=== PATIENT | female | born 1960 | race Caucasian/White ===

== ENCOUNTER → 2024-07-12 10:27 | Outpatient (REF) | payer OTHER, SELFPAY | LOC: HWRAD 10:27 | PROVIDERS: ATTENDING PHYSICIAN Obstetrics & Gynecology Obstetrics; FAMILY PHYSICIAN Internal Medicine | DX: R10.2 Pelvic and perineal pain (principal) | CPT/HCPCS: 76830; 76856 ==

== ENCOUNTER → 2024-07-15 13:28 | Outpatient (REF) | payer OTHER, SELFPAY | LOC: RAD 13:28 | PROVIDERS: ATTENDING PHYSICIAN Internal Medicine | DX: M81.0 Age-related osteoporosis without current pathological fracture (principal) | CPT/HCPCS: 77080 ==

== ENCOUNTER 2024-12-04 08:38 | Emergency (ER) | payer OTHER, SELFPAY ==
[2024-12-04 08:59] VITALS: BP 102/66
--- NOTE | 2024-12-04 09:08 | ED.GENMED ---
Addendum entered and electronically signed by Eri Mayer PA-C 12/07/24 14:44:
hickman sensitive; no treatment change required
Addendum entered and electronically signed by Ciro Ledesma PA-C 12/06/24 06:12:
Urine culture with greater than 100,000 colony-forming units of E. coli. This is preliminary. On Keflex. Sensitivities pending
Original Note:
History of Present Illness
General
Chief Complaint: Urinary Symptoms
Source: patient
Exam Limitations: none
Time Seen by Provider: 12/04/24 09:06
Nursing documentation reviewed up to this point in time: agreed with
History of Present Illness
History of Present Illness:
TIME OF INITIAL EVALUATION
-9:15AM
CHIEF COMPLAINT(S)
Painful urination and hematuria.
HISTORY OF PRESENT ILLNESS
The patient is a 64-year-old female with a past medical history of Factor V Leiden and ulcerative colitis leading to a J-pouch, presenting with extreme pain during urination and visible blood in the urine. The symptoms began this morning.
Initially, the patient experienced sudden pain in the pelvic area upon getting up, which worsened during urination and radiated to the left side of the back. No fever, nausea, vomiting, or significant abdominal pain was reported. She has a history
of kidney stones many years ago although feels that presented differently. She does have a history of UTIs.
Patient had a left knee replacement 8 weeks ago.
ADDITIONAL HISTORY OBTAINED FROM SOURCES OTHER THAN THE PATIENT
The patient reports that her urine appears dark with a significant amount of blood present each time she voids.
PHYSICAL EXAM
- General: Well appearing in no distress
- HEENT: Moist oral mucosa
- Cardiovascular: No murmurs, normal heart rate, regular rhythm, No chest wall tenderness
- Pulmonary: No respiratory distress, breath sounds are clear and equal
- Abdomen: Abdomen soft. Mild tenderness in suprapubic region. No rebound tenderness or guarding. No CVA tenderness.
- Neurologic: Excellent strength all extremities, no coordination deficits
- Psychiatric: Appropriate mental status, normal insight and judgement
- Extremities: Nontender, no edema, moves all extremities equally
- Skin: No rash, no lesions
CHRONIC MEDICAL CONDITIONS SIGNIFICANTLY AFFECTING CARE
Chronic conditions affecting care: Factor V Leiden, J-pouch due to ulcerative colitis.
PLAN
Initiate laboratory tests and send a urine sample for analysis to rule out infection and assess for stones. Start IV fluids. Administer pain management -plan to avoid NSAIDs with digestive concerns.
DIFFERENTIAL DIAGNOSIS
The Differential Diagnosis includes, in no particular order and is not limited to:
1. Urinary tract infection
2. Nephrolithiasis (kidney stones)
3. Pyelonephritis
4. Interstitial cystitis
5. Acute cystitis
6. Urethral stricture
7. Bladder tumor
8. Hemorrhagic cystitis
9. Drug-induced hematuria
10. Coagulopathy due to Factor V Leiden
REVIEW OF OLD RECORDS
- Pelvic ultrasound 07/12/24 -unremarkable exam
RADIOLOGY
- Noncontrast CT abdomen/pelvis - No evidence of obstructing uropathy or perinephric stranding
LABS
- CBC and CMP without clinically significant abnormalities. No leukocytosis or renal insufficiency noted.
- UA shows evidence of infection given nitrate positive, 3+ leukocyte esterase, >100 RBCs, and some WBCs
MEDICAL DECISION MAKING
Chronic conditions affecting care: Factor V Leiden, J-pouch due to ulcerative colitis. Differential diagnoses considered include urinary tract infection, nephrolithiasis, interstitial cystitis, acute cystitis, urethral stricture, bladder tumor,
hemorrhagic cystitis, and coagulopathy due to Factor V Leiden.
INDEPENDENT REVIEW OF LABS AND INTERPRETATION OF TESTS
My independent review of the urine analysis indicates the presence of red blood cells and nitrite positivity, suggesting a urinary tract infection. There is no evidence of kidney stones.
PLAN
Overall - suspect acute UTI without evidence of obstructive process or ascending infection. Patient well and nontoxic appearing. Discussed lab/imagine findings with patient at bedside. Initiate treatment with an oral antibiotic, based on patient
history and allergies, and send the urine for culture. Provide pain management with acetaminophen, continue observation for any worsening symptoms. Feel stable for discharge home with outpatient management. Instruct the patient to follow up with
the primary care provider and to have a repeat urinalysis in a month to ensure resolution of hematuria.
MEDICATION RECONCILIATION
Prescribed cephalexin for the urinary tract infection. Recommended continuation of oxycodone for knee pain with the addition of acetaminophen for enhanced pain relief. Will send rx for Pyridium for additional analgesic.
FOLLOW-UP INSTRUCTIONS
Patient instructed to follow up with a primary care provider and to have a repeat urinalysis in a month. Advised to return if symptoms worsen or systemic signs of infection develop, such as fever, severe back pain, or vomiting.
PATHOLOGIES TO CONSIDER
Consider potential complications such as pyelonephritis or septicemia if symptoms worsen.
Review of Systems
Review of Systems
Allergies reviewed?: Yes
All Other Systems: ROS reviewed and negative except as documented in HPI and ROS
Phy Exam
Physical Exam
Physical Exam:
See HPI
Course
Orders/Labs/Results
Orders:
Orders
12/04/24 09:16
Complete Blood Count/With Diff Urgent
Comprehensive Metabolic Panel Urgent
Creatine Phosphokinase Urgent
Comment: ADD ON
Urine Culture Reflexed from UA [Urinalysis Reflex To Culture] Urgent
Date Specimen was Collected: 12/04/24
Time Specimen was Collected: 09:14
Urine Microscopic Reflex Cult Urgent
Urine Culture Urgent
DARON Source: U
Specimen Description:
Date Specimen was Collected: 12/04/24
Time Specimen was Collected: 09:14
12/04/24 09:22
Abdomen/Pelvis wo Contrast CT [CT Abd/pelvis Wo Iv Cont] Urgent
Comment:
Reason For Exam: Suprapubic pain, dysuria, hematuria
0.9% Sodium Chloride 1000 ml [Nss] 1,000 ml IV BOLUS
Oxycodone/Acetaminophen [Percocet 5/325] 1 tablet PO NOW STA
12/04/24 09:28
Add On- LAB Urgent
Tests Added?: CK
12/04/24 10:58
Cefdinir [Omnicef] 300 mg PO NOW STA
12/04/24 11:03
Cephalexin Monohydrate [Keflex] 500 mg PO NOW STA
Abnormal Lab Results
12/04/24
09:16
RBC 4.17 L 10^6/uL
(4.20-5.40)
Absolute Lymphs (auto) 0.9 L 10^3/uL
(1.2-3.4)
Neutrophils % 79.4 H %
(42.2-75.2)
Lymphocytes % 12.2 L %
(20.5-51.1)
Glucose 100 H mg/dl
(70-99)
Ur Occult Blood Reflex 4+ A
(Negative)
Urine Nitrite (Reflex) Positive A
(Negative)
Leukocyte Esterase Rfl 3+ A
(Negative)
Urine RBC >100 A /HPF
(0-2)
Urine WBC (Reflex) 16-20 A /HPF
(0-5)
Urine Bacteria (Reflex) Moderate A
(Negative)
Urine Albumin (Reflex) 4+ A
(Neg - Trace)
12/04/24 09:16
12/04/24 09:16
Vital Signs
Initial and Last Documented VS:
Initial Vital Signs
Temp Pulse Resp BP Pulse Ox
98.3 F 78 18 102/66 100
12/04/24 08:59 12/04/24 08:59 12/04/24 08:59 12/04/24 08:59 12/04/24 08:59
Last Documented Vital Signs
Temp Pulse Resp BP Pulse Ox
97.7 F 59 16 93/60 98
12/04/24 11:17 12/04/24 11:17 12/04/24 11:17 12/04/24 11:17 12/04/24 11:17
*Pulse Oximetry
SaO2: 100
Oxygen Mode of Delivery: Room air
Patient hypoxic: no
*EKG
Interpreted by ED Provider?: NA
*Tennis Centre Manager Interpretation
Rate: Tennis Centre Manager- N/A
*Critical Care Note
Total Time (30-74mins, 75-104mins- exclusive of procedures): Not Applicable
Data Reviewed
Review of Other/Old Records Reveals: Radiology Studies (Pelvic ultrasound 07/12/2024-unremarkable exam)
Source: previous radiology exam
ED Attending Note
-
Portions of this chart may have been created with voice recognition software.� Occasional wrong word or��sound alike� substitutions may have occurred due to the inherent limitations of voice recognition software.
Discharge Plan
Departure
Patient Disposition: Home (Routine Discharge)
Date of Disposition: 12/04/24
Time of Disposition: 10:58
Patient with high blood pressure during this ER visit?: No
Condition: Good
Covid-19: Not Applicable
Discharge Problem:
Acute UTI
Instructions: Urinary Tract Infection, Adult (DC), Blood in the Urine (Hematuria), Adult (DC)
Prescriptions:
New
cephalexin 500 mg capsule
500 mg PO BID 7 Days Qty: 14 0RF
phenazopyridine [Pyridium] 200 mg tablet
200 mg PO TID PRN (Reason: Pain) Qty: 6 0RF
Referrals:
Shannon Carlson MD [Family Provider, Internal Medicine] - Follow up in 1 week
Activity Restrictions/Additional Instructions:
RETURN TO THE EMERGENCY DEPARTMENT ANY FEVERS, CHILLS, SEVERE BACK OR ABDOMINAL PAIN, INTRACTABLE NAUSEA/VOMITING, PERSISTENT/HEAVY BLOOD LOSS, LIGHTHEADEDNESS/DIZZINESS, WORSENING IN CURRENT SYMPTOMS, OR ANY OTHER CONCERN
- As discussed�your lab work showed no acute abnormalities. Your urine does appear infected and had numerous red blood cells. Your CT scan showed no evidence of obstructing kidney stone or other acute abnormalities
- A prescription for an antibiotic has been sent to your pharmacy. You should take this twice a day for the next 7 days. You were given your first dose in the emergency department. It is important you complete this course of antibiotics
- Follow-up with your primary care for further evaluation/management to ensure that symptoms are improving in about 1 week. Given evidence of red blood cells�please have your urinalysis repeated in about a month to ensure resolved
Monitor your symptoms closely and return to the emergency department with any acute worsening/new symptoms or any other concerns
Interventions
Interventions:
*Risk Screen - Suicide Last Done: 12/04/24 08:59
*General Assessment Last Done: 12/04/24 08:59
*Neglect/Abuse Screening Last Done: 12/04/24 08:59
*ED- Fall Risk Assessment Last Done: 12/04/24 11:17
*ED COVID-19 Vaccine History Last Done: 12/04/24 11:17
*Nursing Disposition Last Done: 12/04/24 11:17
ED-Female Genitourinary Assessment Last Done: 12/04/24 09:36
Discharge Date and Time
Discharge Date/Time: 12/04/24 11:19
Print Language: ROMANIAN
[2024-12-04] MEDS: PERCOCET 5/325 1 TABLET PO (09:33)
[2024-12-04] MEDS: NSS 1000 IV (09:33)
[2024-12-04 09:36] VITALS: BMI 19.8
[2024-12-04 09:38] LABS: % Basophils 0.1 % (0-2); % Eosinophils 1.2 % (0-6); % Immature Granulocytes 0.3 % (0-0.5); % Lymphocytes 12.2 % (20.5-51.1); % Monocytes 6.8 % (1.7-9.3); % Neutrophils 79.4 % (42.2-75.2); Absolute Eosinophils 0.1 10^3/uL (0-0.7); Absolute Lymphocytes 0.9 10^3/uL (1.2-3.4); Absolute Monocytes 0.5 10^3/uL (0.1-0.6); Hematocrit 38.5 % (37.0-47.0); Hemoglobin 12.9 g/dL (12.0-16.0); Mean Corp Hgb Conc. 33.5 g/dL (33.0-37.0); Mean Corpuscular Hgb 30.9 pg (27.0-31.0); Mean Corpuscular Volume 92.3 fL (81.0-99.0); Mean Platelet Volume 9.7 fL (7.4-10.4); Nucleated Red Blood Cells % 0 %; Platelet Count 239 10^3/uL (130-400); Red Blood Cell Count 4.17 10^6/uL (4.20-5.40); Red Cell Dist. Width 12.5 % (11.5-14.5); White Blood Cell Count 7.5 10^3/uL (4.8-10.8)
[2024-12-04 09:59] LABS: Urine Albumin 4+ (Neg - Trace); Urine Bilirubin Negative (Negative); Urine Character Cloudy (Clear); Urine Color Brown; Urine Glucose Negative (Negative); Urine Ketone Negative (Negative); Urine Leukocyte 3+ (Negative); Urine Nitrite Positive (Negative); Urine Occult Blood 4+ (Negative); Urine Specific Gravity 1.025 (<1.030); Urine Urobilinogen 1+ (Neg - 1+)
[2024-12-04 10:10] LABS: ALT (SGPT) 15 U/L (0-35); AST (SGOT) 21 U/L (14-36); Albumin 4.3 g/dl (3.5-5.0); Alkaline Phosphatase 87 U/L (38-126); Blood Urea Nitrogen 9 mg/dl (7-17); Calcium 9.7 mg/dl (8.4-10.2); Carbon Dioxide 24 mmol/L (22-30); Chloride 106 mmol/L (98-107); Estimated Creatinine Clearance 75 ml/min; Glucose 100 mg/dl (70-99); Potassium 4.4 mmol/L (3.5-5.1); Sodium 137 mmol/L (135-145); Total Bilirubin 0.9 mg/dl (0.2-1.3); Total Protein 6.7 g/dl (6.3-8.2); eGFR > 60.00
[2024-12-04 10:24] LABS: Urine Squamous Cell 0-2 /LPF (Few); Urine Urothelial Cell 0-2 /LPF (FEW)
[2024-12-04 10:25] LABS: Urine Red Blood Cell >100 /HPF (0-2); Urine White Cell 16-20 /HPF (0-5)
[2024-12-04 10:26] LABS: Urine Bacteria Moderate (Negative)
[2024-12-04] MEDS: KEFLEX 500 MG PO (11:11)
[2024-12-04 11:17] VITALS: BP 93/60
[2024-12-04 11:28] LABS: Creatine Phosphokinase 59 U/L (30-135)
== END 2024-12-04 11:19 | disposition home or self-care (01) ==
LOC: EMR 08:38
PROVIDERS: EMERGENCY PHYSICIAN Emergency Medicine; FAMILY PHYSICIAN Internal Medicine
DX: N39.0 Urinary tract infection, site not specified (principal); D68.51 Activated protein C resistance
CPT/HCPCS: 96360; 99284; 74176; 80053; 81003; 81015; 82550; 85025; 87077; 87086; 87186

== ENCOUNTER → 2025-05-21 10:56 | Outpatient (REF) | payer OTHER, SELFPAY | LOC: RCS 10:56 | PROVIDERS: ATTENDING PHYSICIAN Internal Medicine Cardiovascular Disease; FAMILY PHYSICIAN Internal Medicine | DX: I34.1 Nonrheumatic mitral (valve) prolapse (principal); Z01.810 Encounter for preprocedural cardiovascular examination | CPT/HCPCS: 93306 ==